=== PATIENT | male | born 1990 | race Caucasian/White ===

== ENCOUNTER 2023-08-01 14:02 | Emergency (ER) | payer SELFPAY ==
[2023-08-01] MEDS: Diphtheria,Pertussis(Acell),Tetanus Vaccine 0.5 ML Syringe IM ONE (16:14)
[2023-08-01] MEDS: Lidocaine 1% 5 ML VIAL INJECT STA (16:14)
== END 2023-08-01 17:56 | disposition home or self-care (01) ==
LOC: MW.ED 14:02
DX: S61.213A Laceration without foreign body of left middle finger without damage to nail, initial encounter (principal); Z23 Encounter for immunization; I10 Essential (primary) hypertension; Z86.16 Personal history of COVID-19; Z79.899 Other long term (current) drug therapy; Z90.49 Acquired absence of other specified parts of digestive tract; Z75.8 Other problems related to medical facilities and other health care; W23.0XXA Caught, crushed, jammed, or pinched between moving objects, initial encounter
CPT/HCPCS: 12001; 12002; 73140-26-F2; 73140-F2; 90471; 90715; 99283; 99283-25; J3490

== ENCOUNTER 2023-08-08 09:57 | Emergency (ER) | payer SELFPAY | END 2023-08-08 10:22 | disposition left against medical advice (07) | LOC: MW.ED 09:57 | DX: S61.213D Laceration without foreign body of left middle finger without damage to nail, subsequent encounter (principal); Z48.02 Encounter for removal of sutures; X58.XXXD Exposure to other specified factors, subsequent encounter | CPT/HCPCS: 99281 ==